=== PATIENT | male | born 1965 ===

== ENCOUNTER 2017-08-20 10:07 | Emergency (ER) | payer OTHER ==
[2017-08-20 10:13] VITALS: BMI 21.2
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
[2017-08-20 13:23] VITALS: BP 126/78; PULSE 90; RESP 19; TEMP 97; O2SAT 98
== END 2017-08-20 13:22 | disposition home or self-care (01) ==
LOC: H.ER 10:07
DX: M54.9 Dorsalgia, unspecified (principal); M54.2 Cervicalgia; S29.9XXA Unspecified injury of thorax, initial encounter; V43.52XA Car driver injured in collision with other type car in traffic accident, initial encounter; Y92.410 Unspecified street and highway as the place of occurrence of the external cause
CPT/HCPCS: 71101; 96372; 99282; J1885